=== PATIENT | female | born 1990 | race Hispanic/Latino ===

== ENCOUNTER → 2019-01-20 | Outpatient (CLI) | payer OTHER | END | disposition home or self-care (01) | LOC: RAH 14:17 | PROVIDERS: ATTEND Internal Medicine | DX: M25.561 Pain in right knee (principal) | CPT/HCPCS: 73560 ==

== ENCOUNTER 2022-10-03 23:42 | Emergency (ER) | payer OTHER ==
[~2022-10-03] VITALS: Ht 167.6 cm; Wt 97.1 kg
[2022-10-03 23:45] VITALS: BP 124/81
[2022-10-04 00:47] LABS: BASOPHILS % (AUTO) 0.4 % (0.0-5.0); HEMATOCRIT 40.6 % (36-48); LYMPHOCYTES % (AUTO) 36.4 % (21.0-51.0); MEAN CORPUSCULAR HEMOGLOBIN 32.4 pg (27.0-33.0); MEAN CORPUSCULAR HGB CONC 35.7 g/dL (32.0-36.0); MEAN CORPUSCULAR VOLUME 90.6 fL (79-99); MONOCYTES % (AUTO) 6.4 % (3.0-13.0); NEUTROPHILS % (AUTO) 55.5 % (40.0-77.0); PLATELET COUNT (AUTO) 189 K/uL (130-400); RED BLOOD CELL COUNT(AUTO) 4.48 MIL/uL (4.00-5.50); RED CELL DISTRIBUTION WIDTH 12.1 % (11.0-15.5)
[2022-10-04 00:57] LABS: CREATININE 0.7 mg/dL (0.5-1.5); POTASSIUM 3.8 mmol/L (3.5-5.1)
[2022-10-04 01:02] LABS: ALBUMIN 3.9 g/dL (3.5-5.0); TOTAL PROTEIN, SERUM 7.2 g/dL (6.0-8.3)
[2022-10-04] MEDS ORDERED: OMEP40CA21 PO (03:03)
[2022-10-04] MEDS ORDERED: METO10TA41 PO (03:04)
== END 2022-10-04 03:12 | disposition home or self-care (01) ==
LOC: EDH 23:42
DX: R10.9 Unspecified abdominal pain (principal); E78.00 Pure hypercholesterolemia, unspecified; E11.9 Type 2 diabetes mellitus without complications; J45.909 Unspecified asthma, uncomplicated
CPT/HCPCS: 36415; 80053; 83690; 85025